=== PATIENT | male | born 1980 | race Hispanic/Latino ===

== ENCOUNTER 2018-06-08 05:46 | Day surgery (SDC) | payer BC ==
[~2018-06-08 05:46] MED LIST: ANCEF/STERILE WATER 2 GM/20 ML IV NR
[2018-06-08] MEDS ORDERED: NACL BACTERIOSTATIC INFILTRATI ONE (06:42)
[2018-06-08] MEDS ORDERED: LACTATED RINGERS 1,000 ML ONE (06:42)
[2018-06-08] MEDS ORDERED: XYLOCAINE 1%/ EPI 1:100,000 INFILTRATI ONE ×2 (06:51→08:45)
[2018-06-08] MEDS ORDERED: ANTIBIOTIC OINT TP ONE ×2 (06:51→08:45)
[2018-06-08] MEDS ORDERED: BACITRACIN ONE ×2 (06:52→07:11)
[2018-06-08] MEDS ORDERED: NACL P/F VIAL (10 ML) 10 ML ONE ×3 (06:52→07:12)
[2018-06-08] MEDS ORDERED: ANCEF ONE (06:58)
[2018-06-08] MEDS ORDERED: METHYLENE BLUE ONE (06:58)
[2018-06-08] MEDS ORDERED: NACL 0.9% 250ML 0 ML ONE (06:59)
[2018-06-08] MEDS ORDERED: MARCAINE 0.5% INFILTRATI ONE ×2 (07:04→08:45)
[2018-06-08] MEDS ORDERED: QUELICIN ONE (07:19)
[2018-06-08] MEDS ORDERED: XYLOCAINE MPF 2% ONE (07:19)
[2018-06-08] MEDS ORDERED: ZEMURON IV ONE (07:19)
[2018-06-08] MEDS ORDERED: DECADRON ONE (07:19)
[2018-06-08] MEDS ORDERED: SUBLIMAZE ONE (07:20)
[2018-06-08] MEDS ORDERED: DIPRIVAN 10 MG/ML IV ONE ×2 (07:20→08:17)
[2018-06-08] MEDS ORDERED: VERSED IV NR (07:21)
[2018-06-08] MEDS ORDERED: DILAUDID IV NR (07:21)
[2018-06-08] MEDS ORDERED: NEURONTIN PO NR (07:23)
[2018-06-08] MEDS ORDERED: LACTATED RINGERS 1,000 ML IV SCH (07:23)
[2018-06-08] MEDS ORDERED: DILAUDID ONE (08:17)
[2018-06-08] MEDS ORDERED: KETALAR ONE (08:25)
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
--- NOTE | 2018-06-08 08:37 | Anesthesia Day of Surgery ---
Anesthesia Day of Surgery - Day of Surgery Patient Examined: Yes Patient H&P Reviewed: Yes Patient is NPO: Yes
[2018-06-08] MEDS ORDERED: DILAUDID IV PRN (08:41)
[2018-06-08] MEDS ORDERED: BACITRACIN IR ONE (08:45)
[2018-06-08] MEDS ORDERED: ANCEF IV ONE (08:45)
[2018-06-08] MEDS ORDERED: OMNIPAQUE (240 MG) IRRIGATION ONE (08:45)
[2018-06-08] MEDS ORDERED: CELESTONE SOLUSPAN IM ONE ×3 (08:45→12:46)
[2018-06-08] MEDS ORDERED: NACL 0.9% IR ONE (08:45)
[2018-06-08] MEDS ORDERED: Vasostrict ONE (08:59)
[2018-06-08] MEDS ORDERED: TORADOL ONE (11:42)
[2018-06-08] MEDS ORDERED: LOPRESSOR IV ONE (11:43)
--- NOTE | 2018-06-08 13:16 | Post Anesthesia Evaluation ---
- Post Anesthesia Evaluation Patient Participated: Yes Airway Patent: Yes Stable Respiratory Function: Yes Nausea/Vomiting: No Temp > 96.8F: Yes Pain Manageable: Yes Adequeate Hydration: Yes Anesthesia Complications: No
[2018-06-08 13:49] VITALS: BP 109/59
--- NOTE | 2018-06-11 08:07 | Fluoroscopy Report ---
FLUOROSCOPY MYELOGRAM LUMBOSACRAL History: Radiculopathy. Findings: Fluoroscopy was provided by radiology during lumbosacral myelogram and discogram at L3-4. 6 fluoroscopic images were saved during this procedure by Dr. Maxwell. The images demonstrate contrast agent within the lumbosacral canal and contrast agent within the L4-5 disc space. Moderate to severe degenerative disc disease is noted at L3-4. Mild diffuse facet arthropathy. Impression: Lumbar spondylosis. Fluoroscopy was provided by radiology during lumbosacral myelogram and discogram. Please correlate with the procedural report.
--- NOTE | 2018-07-14 10:27 | Operative Report ---
Operative Report Operative Report: Date of Service: 06/08/2018 PREOPERATIVE DIAGNOSIS: 1. Chronic left L3 radiculopathy. 2. Chronic axial low back pain. 3. Left L3-4 foraminal disc herniation. 4. Severe left L3-4 foraminal stenosis. 5. Lumbar spinal stenosis at L3-4 without neurogenic claudication. POSTOPERATIVE DIAGNOSIS: 1. Chronic left L3 radiculopathy. 2. Chronic axial low back pain. 3. Left L3-4 foraminal disc herniation. 4. Severe left L3-4 foraminal stenosis. 5. Lumbar spinal stenosis at L3-4 without neurogenic claudication. PROCEDURE PERFORMED: 1. Left foraminotomy of Lumbar Spine -L3-L4. 2. Left L3-4 discectomy and decompression of left L3 nerve root. 3. Lumbar discography L3-L4. 4. Left L3-L4 transforaminal epidural steroid injection. SURGEON: ISSA NUNES M.D. ANESTHESIA: GETA, 1% lidocaine local/0.5% bupivicaine. NEUROMONITORING: EMG and SSEP neuromonitoring of bilateral lower extremities was performed throughout the procedure. No abnormal activity was observed during the procedure. EBL: 15 mL DESCRIPTION OF PROCEDURE: Following informed consent, the patient was brought to the operative suite and placed on the table a prone position. General endotracheal anesthesia was delivered without complication. The back was sterilely prepped and draped in routine fashion. Patient received 2 g cefazolin intravenously for antimicrobial prophylaxis. A C-arm was brought into place with attention turned to the lumbar spine. Attention was turned toward the left neural foramen at the L3-4 level. The 25-gauge 5 inch spinal needle was directed into the central spinal canal L2-3. 10 mL of Omnipaque 240 was injected passive finding the ventral aspect of the subarachnoid space with moderate central spinal stenosis at L3-4 with effacement of contrast on the left and amputation of L3 and L4 nerve root sleeves. Next, a 22-gauge 6 inch spinal needle was directed into the central aspect of the L3-4 disc using a right posterior lateral approach. Discography was performed with injection of 5 mL Omnipaque 240 mixed with methylene blue and cefazolin. There is extension contrast posterior to the disc space within the left L3-4 foramen consistent with left foraminal disc herniation. Following injection of 1% lidocaine with epinephrine, a 1 cm transverse incision was made overlying the left L3-L4 neural foramen. Using serial dilators, a tract was created to the left L3-4 neural foramen. A tubular retractor was anchored. The surgical process of L4 and the endplate of L3 and attached soft tissues were identified under direct visualization. This was followed by placement of a endoscope. Bipolar electrocautery was utilized for hemostasis. The soft tissue was dissected from superior reticular process of L3. The foraminal ligament was partially resected. A moderate disc herniation was then encountered and was resected. An annular defect was identified and the defect was cauterized for partial closure. Foraminotomy was then performed in standard fashion.. Following additional resection of the remnant forainal ligament was performed. Using a high-speed articulating drill with a octavia-tip mendy, the superior and ventral aspect of the L4 superior articular process was removed. Osteophyte of the inferior L3 endplate was partially resected. Utilizing bipolar electrocautery for ablation and a endoscopic 45 Kerrison, the ligamentum flavum was resected exposing the descending L4 nerve root sleeve. The nerve root appeared to be adequately decompressed. Once foraminotomy appeared to be satisfactory with significant satisfactory enlargement of the neural foramen, the instrumentation was removed. The incision was closed with interrupted 2-0 Vicryl sutures and skin edges were approximated with 3-0 Prolene interrupted sutures. A 22-gauge 5 inch spinal needle was then directed into the left L3-L4 neural foramen and transforaminal epidural injection was performed after injection of Omnipaque 240 demonstrated satisfactory contrast flow without subarachnoid space opacification of vascular uptake. 12 mg of betamethasone mixed with 2.0 mL of 0.5% bupivacaine was injected. Sterile dressing was applied. The patient was turned onto the gurney, extubated and taken to the PACU in stable cardiopulmonary neurologic condition. CONDITION AT DISCHARGE: Good. FOLLOW-UP: In office in 7 days for wound check.
== END 2018-06-08 13:30 | disposition home or self-care (01) ==
LOC: OR 05:46
PROVIDERS: ATTEND Radiology Diagnostic Radiology
DX: M51.16 Intervertebral disc disorders with radiculopathy, lumbar region (principal); M48.062 Spinal stenosis, lumbar region with neurogenic claudication; G89.29 Other chronic pain; I10 Essential (primary) hypertension; M19.90 Unspecified osteoarthritis, unspecified site; F31.9 Bipolar disorder, unspecified; E66.9 Obesity, unspecified; Z68.35 Body mass index [BMI] 35.0-35.9, adult; Z79.899 Other long term (current) drug therapy; Z72.89 Other problems related to lifestyle; Z98.84 Bariatric surgery status; Z87.891 Personal history of nicotine dependence; Z98.890 Other specified postprocedural states
CPT/HCPCS: 62304; 63030; 64483; 86850; 86900; 86901; J0330; J0690; J0702; J1100; J1170; J1885; J2250; J2704; J3010; J7120; Q9966; Q9968; J7050